=== PATIENT | male | born 1940 ===

== ENCOUNTER 2019-03-19 11:24 | Emergency (ER) | payer MEDICARE ==
[~2019-03-19 11:24] MED LIST: Iopamidol-370 76% 500 ML 1 ML ONE
--- NOTE | 2019-03-19 13:16 | RAD ---
Portable frontal chest radiograph: 03/19/2019 COMPARISON: None HISTORY: Bilateral lower extremity swelling FINDINGS: Lungs are clear. Heart and mediastinal contours appear within normal limits. IMPRESSION: No acute findings.
[2019-03-19 13:23] LABS: ALT (SGPT) 259 U/L (8-55); AST (SGOT) 275 U/L (5-34); Alkaline Phosphatase 169 U/L (40-110); Anion Gap 14 mmol/L (10-20); BUN (Urea Nitrogen) 9 mg/dL (8.4-25.7); Bilirubin, Total 0.9 mg/dL (0.2-1.2); Calc. Creatinine Clearance 0 mL/min (70-130); Calcium 8.6 mg/dL (7.8-10.44); Carbon Dioxide 26 mmol/L (23-31); Chloride 99 mmol/L (98-107); Estimated GFR-MDRD Greater than 90; Globulin 2.6 g/dL (2.4-3.5); Glucose 105 mg/dL (83-110); Protein, Total 6.6 g/dL (5.8-8.1); Sodium 134 mmol/L (136-145)
[2019-03-19 13:32] LABS: Band 8 % (5-11); Eosinophils 4 % (0-10); Hemoglobin 13.3 g/dL (14.0-18.0); Lymphocytes 25 % (21-51); MDiff Complete? YES; Mean Corpuscular HGB CONC 35.1 g/dL (32.0-36.0); Mean Corpuscular Hemoglobin 31.3 pg (27.0-31.0); Mean Platelet Volume 7.3 fL (7.4-10.4); Monocytes 8 % (0-10); Neutrophil 47 % (42-75); Platelet Count 263 thou/uL (130-400); Platelet Morphology Comment Appears Adequate; Polychromasia SLIGHT = 2-3 cells (100X) (0-2/hpf); RBC Distribution Width 12.1 % (11.5-14.5); Reactive Lymphocytes 8 % (0-10); Red Blood Cell (RBC) Count 4.27 mill/uL (4.70-6.10); White Blood Cell (WBC) Count 6.4 thou/uL (4.8-10.8)
[2019-03-19 14:34] LABS: INR-International Normal Ratio 1.1
[2019-03-19 14:49] LABS: Acetaminophen Less than 6.0 mcg/mL (10.0-30.0)
[2019-03-19 15:10] LABS: HBCM Index 0.06 S/CO (0-0.79); HBSAg Index 0.25 S/CO (0-0.99); Hep A IgM AB Non-Reactive (NonReactive); Hep A IgM S/CO 0.12 S/CO (0-0.79); Hep B Surf Ag Non-Reactive S/CO (NonReactive); Hep C IgG Ab Non-Reactive (NonReactive); Hep C Index 0.16 S/CO (0-0.79); Hepatitis B Core IgM Abs Non-Reactive (NonReactive)
--- NOTE | 2019-03-19 15:34 | CT ---
CT ABDOMEN WITH CONTRAST CT PELVIS WITH CONTRAST: DATE: 03/19/2019 HISTORY: 78-year-old male with history of ethanol abuse presents with bilateral lower extremity edema. Rule ou t hepatocellular carcinoma and extrinsic compression upon IVC or iliac veins. TECHNIQUE: IV injection of iodinated contrast media: Administered Oral contrast media:Not administered FINDINGS: Liver: No focal solid mass. No portal vein thrombosis. Spleen: No splenomegaly.. Pancreas: No mass or surrounding fat stranding.. Adrenals: No mass.. Kidneys: No hydronephrosis or enhancement abnormalities.. Ureters: No dilation. Bladder: Distended. No abnormal mural thickening. Abdominal aorta: No aneurysm. Small bowel: No dilation. Colon: No adjacent fat stranding. Appendix: No dilation or adjacent fat stranding.. Free air: None. Free fluid: None. Inferior vena cava: Patent. No extrinsic compression. Iliac veins: Bilateral common and external iliac veins demonstrate no occlusion or extrinsic compress ion. Lumbar spine: Grade 1 anterolisthesis of L3 on L4 due to bilateral high-grade facet DJD. High-grade c entral spinal canal stenosis and high-grade Bilateral neural foraminal stenosis at L3-4. 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 IMPRESSION: 1. No major pathology identified.. 2. No retroperitoneal mass, and no extrinsic compression upon inferior vena cava or iliac veins. 3. Distended urinary bladder. 4. Posterior element onlay lower lumbar spine fusion surgery with successful ankylosis. 5. High-grade central spinal canal stenosis and high-grade bilateral neural foraminal stenosis at L3- 4, related to grade 1 spondylolisthesis due to severe facet osteoarthrosis.
== END 2019-03-19 16:04 | disposition home or self-care (01) ==
LOC: ERS 11:24
DX: R60.0 Localized edema (principal); R74.0 Nonspecific elevation of levels of transaminase and lactic acid dehydrogenase [LDH]; F17.220 Nicotine dependence, chewing tobacco, uncomplicated
CPT/HCPCS: 36415; 71045; 74177; 80053; 80074; 80307; 83880; 84484; 85025; 85610; 85730; 93005; Q9967